=== PATIENT | male | born 1985 | race Caucasian/White ===

== ENCOUNTER 2017-03-05 10:12 | Day surgery (SDC) | payer OTHER ==
[~2017-03-05] VITALS: Ht 190.5 cm; Wt 93.6 kg
[~2017-03-05 10:12] MED LIST: NORCO, ANEXSIA 5/325MG TABLET (HYDROcodone/ACETAMINOPHEN) PO SCH
[2017-03-05] MEDS ORDERED: LR 1,000 ML IV ONE (10:30)
[2017-03-05] MEDS ORDERED: MIDAZOLAM INJ 2 MG/2 ML VIAL (J2250) As Ordered ONE (13:53)
[2017-03-05] MEDS ORDERED: fentaNYL 100 MCG/2 ML INJECTION (J3010) As Ordered ONE ×2 (13:53→15:45)
[2017-03-05] MEDS ORDERED: BUPIVACAINE HCL 0.25% 30 ML VIAL As Ordered ONE (14:53)
[2017-03-05] MEDS ORDERED: PROPOFOL 200 MG/20 ML VIAL As Ordered ONE ×3 (15:38→16:26)
[2017-03-05] MEDS ORDERED: ROCURONIUM BROMIDE 50 MG/5 ML VIAL As Ordered ONE (15:38)
[2017-03-05] MEDS ORDERED: GLYCOPYRROLATE INJ 0.2 MG/ML 2 ML VIAL As Ordered ONE (15:39)
[2017-03-05] MEDS ORDERED: ONDANSETRON 4MG/2ML VIAL (J2405) As Ordered ONE (15:39)
[2017-03-05] MEDS ORDERED: KETOROLAC 60 MG/2 ML VIAL (J1885) As Ordered ONE (15:39)
[2017-03-05] MEDS ORDERED: dexameTHASONE 4 MG/ML 1ML VIAL (J1100) As Ordered ONE (15:39)
[2017-03-05] MEDS ORDERED: NEOSTIGMINE 10 MG/10 ML VIAL (J2710) As Ordered ONE (15:39)
[2017-03-05] MEDS ORDERED: HYDROmorphone HCL 2 MG/ML 1ML VIAL (J1170) As Ordered ONE (16:05)
[2017-03-05] MEDS ORDERED: ESMOLOL INJ 100MG/10ML VIAL As Ordered ONE (16:31)
[2017-03-05] MEDS ORDERED: MEPERIDINE INJ 25 MG/ML VIAL (J2175) As Ordered ONE ×2 (17:30→17:31)
[2017-03-05] MEDS ORDERED: PERCOCET 5MG/325MG TAB As Ordered ONE (17:30)
[2017-03-05] MEDS: MEPERIDINE INJ 25 MG/ML VIAL (J2175) IV PRN ×2 (17:35→17:53)
[2017-03-05] MEDS: PERCOCET 5MG/325MG TAB PO PRN ×2 (17:35→18:06)
[2017-03-05] MEDS ORDERED: LR 1,000 ML IV SCH (17:45)
[2017-03-05] MEDS ORDERED: ONDANSETRON 4MG/2ML VIAL (J2405) IV PRN (17:45)
[2017-03-05] MEDS ORDERED: METOCLOPRAMIDE INJ 10MG/2ML VIAL (J2765) IV PRN (17:45)
[2017-03-05] MEDS ORDERED: fentaNYL 100 MCG/2 ML INJECTION (J3010) IV PRN (17:45)
[2017-03-05] MEDS ORDERED: NORCO, ANEXSIA 5/325MG TABLET (HYDROcodone/ACETAMINOPHEN) As Ordered ONE (19:43)
[2017-03-05] MEDS ORDERED: IBUPROFEN 600 MG TAB PO PRN (20:00)
[2017-03-05] MEDS ORDERED: ACETAMINOPHEN 500 MG TAB PO PRN (20:00)
[2017-03-05] MEDS ORDERED: NORCO, ANEXSIA 5/325MG TABLET (HYDROcodone/ACETAMINOPHEN) PO PRN (20:00)
[2017-03-05 21:20] VITALS: BP 135/79
[2017-03-05] MEDS ORDERED: NORCOTAB PO (21:38)
--- NOTE | 2017-03-06 07:29 | RO ---
DATE OF PROCEDURE: 03/05/2017 PREOPERATIVE DIAGNOSIS: Symptomatic gallstones. POSTOPERATIVE DIAGNOSIS: Symptomatic gallstones. PROCEDURE PERFORMED: Laparoscopic cholecystectomy. SURGEON: Dr. Demetri Byod WHIPPED TOPPING FINISHER: ANESTHESIA: General. INDICATIONS FOR PROCEDURE: The patient is a 31-year-old man who reports problems with his gallbladder over the last few months. He had been seen in [place] and had studies that showed multiple stones with some gallbladder wall thickening at that time. He returned to the [facility] and presented for evaluation and is now for a laparoscopic cholecystectomy. OPERATIVE PROCEDURE: The patient was placed supine on the operating table. He was placed under general endotracheal anesthesia. The patient's abdomen was prepped and draped in a sterile fashion. The patient has had a previous epigastric hernia repair using mesh. He has had a previous right upper quadrant hernia repaired also with mesh. He is status post a duodenal switch procedure for obesity and required a revision some time later because of excessive weight loss. In order to gain access to the abdomen, I selected a point in the right lateral abdomen slightly above the level of the umbilicus. After infiltrating Marcaine, a small incision was made and a Veress needle was inserted. After a positive hanging drop test, the abdomen was inflated with carbon dioxide gas. A 5 mm port was placed over a 5 mm scope and advanced through the abdominal wall without difficulty. Inspection showed that there were some adhesions along the midline at the area of his epigastric scar. I noted that there was a fairly broad piece of mesh that was nicely incorporated into the abdominal wall with some adhesions only in the central portion of this along the midline. The mesh did extend up slightly above the end of the scar. In the right upper quadrant was another patch of adhesions to the anterior abdominal wall at the site of his other hernia repair. The liver was quite pale in coloration and the edges were quite blunt suggesting some fatty infiltration. The gallbladder appeared distended. There were some dilated loops of bowel in the mid to lower abdomen. The patient was tilted to a reverse Trendelenburg position and rolled slightly to the left. A 5 mm trocar was placed in the left upper quadrant. An 11 mm Jeff port was placed just above the top of the midline hernia incision in the epigastrium and a final 5 mm port was placed in the lateral right upper quadrant. The gallbladder was grasped and elevated. Exposure of the left side of the gallbladder was somewhat limited by the surrounding liver. Dissection was begun near the gallbladder neck. The fibrofatty tissue was opened with the hook cautery and the cystic duct was clearly identified. The cystic duct was doubly clipped with hemoclips and divided. Dissection then proceeded to free the neck of the gallbladder. A specific cholecystic artery was not readily identified. There was a small artery along the edge of the gallbladder bed on the right side which caused a small amount of bleeding that was ultimately controlled with cautery. Dissection proceeded to free the gallbladder up to the fundus. In the course of the dissection, a small opening was created in the midbody of the gallbladder with leakage of a small amount of bile into the subhepatic space. The gallbladder was placed in an Endopouch. The right upper quadrant was irrigated and inspected. Bile was cleared completely where it had been spilled. A few small bleeding points along the gallbladder bed were controlled with the cautery. Final inspection revealed no evidence of bleeding or bile leak. The patient was returned to a flat position. The abdomen was deflated and the trocars were removed. The gallbladder removal was hampered by an extensive burden of stones. It was necessary to extend the epigastric incision to approximately 3 to 3-1/2 cm in order for the stones to pass. The gallbladder and the extensive stones were sent for permanent pathology. Some small bleeding points in the epigastric incision were controlled. The peritoneum was closed with a running suture of #2-0 Vicryl. The fascia was closed with interrupted simple sutures of #0 Vicryl. The skin incisions were all closed with buried #5-0 Monocryl and Steri-Strips. Light dressings were applied. The patient tolerated the procedure well without apparent complication. He was awakened in the operating room, extubated and moved to the recovery room in stable condition.
== END 2017-03-05 21:30 | disposition home or self-care (01) ==
LOC: M SDC 10:12
PROVIDERS: ATTEND Surgery
DX: K80.10 Calculus of gallbladder with chronic cholecystitis without obstruction (principal); D64.9 Anemia, unspecified; T88.59XD Other complications of anesthesia, subsequent encounter; Z86.59 Personal history of other mental and behavioral disorders; Z98.84 Bariatric surgery status; Z72.0 Tobacco use; Z72.89 Other problems related to lifestyle